=== PATIENT | female | born 1980 | race Caucasian/White ===

== ENCOUNTER 2017-12-14 08:12 | Inpatient (IN) ==
--- NOTE | 2017-12-14 09:04 | OB/GYN History & Physical ---
Date of Encounter: 12/14/17 Time of Encounter: 08:59 Assessment and Plan (1) H/O: Current visit: Yes Status: Acute prob list: h/o x 3 undesired fertility, asthma, smoker cervix checked and fingertip, however patient is in moderate distress so we will be proceeding to , consents signed Anesthesia aware History of Present Illness HPI: Ms. Scott is a 37 year old female @ 39+3 weeks who presents to L&D for her scheduled . She is a repeat x 3 and desires tubal ligation. She does not report LOF, VB, she says that she has been harpreet since 5AM minutes apart (she thinks she is in labor). She has had limited care due to social issues. Past Med Surg Social Fam HX - Past Medical History Medical history: asthma, kidney stones Additional medical history: MRSA IN LEFT EYE 10/01 Psychiatric history: anxiety, depression - Past Surgical History Surgical History: , orthopedic, other Additional surgical history: ORTHO SURGERY LEFT ANKLE - Social History Smoking Status: Never smoker Smokeless Tobacco Status: No Alcohol use: none Drug use: none - Family History Mother Adopted: No Living Status: Still Living Hx Family Cardiac Disorders: Yes (HTN) Hx Family Endocrine Disorder: Yes (DIABETES) Obstetrical History - Pregnancies : 5 Para: 3 Medications and Allergies Albuterol Sulfate [Albuterol Inhaler] 2 puff IH QID #1 inhaler 05/11/17 [Rx] Aspirin [Adult Aspirin Regimen] 1 tab PO DAILY 12/14/17 [History] Buprenorphine HCl [Subutex] 12 mg SL DAILY 12/14/17 [History] Vit Calc,Iron,Folic [ Vitamins] 1 tab PO DAILY 12/14/17 [ History] 3 Allergy/AdvReac Type Severity Reaction Status Date / Time No Known Allergies Allergy Verified 12/14/17 08:50 Review of System OB All systems PM: reviewed and no additional remarkable complaints except as stated Results Result Diagrams: 12/14/17 09:10 All other labs normal.
[2017-12-14] MEDS ORDERED: Ringers Solution, Lactated 1,000 ML ONE ×3 (09:05→10:20)
[2017-12-14] MEDS ORDERED: CeFAZolin Premix DUPLEX 2,000 MG/50 ML BAG IVPB ONE (09:12)
[2017-12-14] MEDS ORDERED: Famotidine 20 MG/2 ML VIAL IVP ONE (09:12)
[2017-12-14] MEDS ORDERED: Ringers Solution, Lactated 1,000 ML IVC SCH ×2 (09:15→12:45)
[2017-12-14] MEDS ORDERED: Oxytocin 20 units/ LR 1000 mL 20 UNIT/1,000 ML BAG IVC SCH ×2 (09:15→12:45)
[2017-12-14] MEDS ORDERED: Bupivacaine/PF 0.75% in Dex 2 ML AMPUL INFILT ONE (09:31)
[2017-12-14] MEDS ORDERED: *HR* Morphine Sulfate/PF 10 MG/10 ML AMPUL ONE (09:34)
[2017-12-14] MEDS ORDERED: *HR* FentaNYL (PF) 100 MCG/2 ML VIAL ONE (09:34)
[2017-12-14] MEDS ORDERED: Lidocaine -MPF 1% 5 ML AMPUL ONE (09:34)
[2017-12-14] MEDS ORDERED: Metoclopramide 10 MG/2 ML VIAL IVP PRN ×2 (09:40→12:42)
[2017-12-14 09:44] LABS: Amphetamine Screen,Urine Negative ng/mL (Cutoff=1000); Barbiturate Screen,Urine Negative ng/mL (Cutoff=200); Benzodiazepines Screen,Urine Negative ng/mL (Cutoff=200); Cannabinoid Screen,Urine Negative ng/mL (Cutoff = 50); Cocaine Screen,Urine Negative ng/mL (Cutoff= 300); Opiate Screen,Urine Negative ng/mL (Cutoff=300); Phencyclidine Screen,Urine Negative ng/mL (Cutoff=25)
--- NOTE | 2017-12-14 09:49 | Anesthesia Evaluation PreOp ---
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 SUPERVISOR History: Denies Any Significant HX Other Medical History: Renal (h/o kidney stones) Anesthesia History: No Prior Anesthetic Complications (denies personal h/o NA or GA complications; denies family h/o GA complications) : Yes Alcohol Use: none Drug use: none Medications and Allergies Albuterol Sulfate [Albuterol Inhaler] 2 puff IH QID #1 inhaler 05/11/17 [Rx] Aspirin [Adult Aspirin Regimen] 1 tab PO DAILY 12/14/17 [History] Buprenorphine HCl [Subutex] 12 mg SL DAILY 12/14/17 [History] Vit Calc,Iron,Folic [ Vitamins] 1 tab PO DAILY 12/14/17 [ History] 3 Allergy/AdvReac Type Severity Reaction Status Date / Time No Known Allergies Allergy Verified 12/14/17 08:50 - Meds/Allergy Pre-op Review Medications Reviewed: Yes Allergies Reviewed: Yes Beta Blockers on Current Med List: No Anesthesia Exam 120/84, HR 89, RR 15 Height: 1.63m Weight: 115 kg NPO (# of Hours): solids > 8hrs Pain Scale: 0 Pain Scale Used: Numeric (1 - 10) - HEENT Pupil (Motor): Pupils equal Mallampati: II Teeth: Normal Oral Opening: Greater than 3 - COILED TUBING SUPERVISOR LOC: Oriented COILED TUBING SUPERVISOR Motor: Normal RUE, Normal LUE, Normal RLE, Normal LLE, Normal Face COILED TUBING SUPERVISOR Sensory: Normal: RUE, LUE, RLE, LLE, Face - Cardiac Rhythm: Regular Murmur: None - Pulmonary Breath Sounds: bilateral Clear Respiratory Effort: Symmetrical Anesthesia Assess/Plan ASA Score: 3 (BMI > 40) Modified [place] Scale for Level of Consciousness: Cooperative, oriented, and tranquil Anesthetic Plan: General (plan B), Regional (plan A) Autologous Blood: No Monitoring Plan: Standard Monitors Recovery Plan: PACU
[2017-12-14 09:52] LABS: Basophils % 0.1 %; Eosinophils # 0.3 K/mcL (0.0-0.6); Eosinophils % 2.7 %; Hematocrit 38.7 % (35.3-44.9); Hemoglobin 13.1 g/dL (11.5-15.4); Immature Granulocytes % 0.5 % (0-4); Lymphocytes # 1.6 K/mcL (0.6-4.6); Lymphocytes % 12.8 %; Mean Corpuscular HGB Conc 33.9 g/dL (31.6-35.5); Mean Corpuscular Hemoglobin 32.8 pg (28.0-33.3); Mean Platelet Volume 11.1 fL (9.4-12.4); Monocytes # 0.8 K/mcL (0.0-1.3); Monocytes % 6.2 %; Neutrophils # 9.8 K/mcL (1.6-8.9); Platelet Count 188 K/mcL (140-400); Red Blood Count 3.99 M/mcL (3.82-4.97); Red Cell Distribution Width 13.3 % (11.5-14.5); Segmented Neutrophils % 77.7 %
--- NOTE | 2017-12-14 10:41 | Anesthesia Procedures ---
Date of Encounter: 12/14/17 Time of Encounter: 10:17 Procedures: Anesthesia - Epidural/Spinal Patient ID/Chart reviewed: Yes Patient examined: Yes OB Eval: Gestational age: 39 weeks 3 days OB Eval: : 5 OB Eval: Hx Para: 3 OB Eval: Contractions: Non-stressed pattern Consent Obtained: Yes Supplemental Oxygen: None/Room Air Site Prep: Aseptic Technique, Sterile prep and drape, Povidone-Iodine 1% Patient position: upright Local Anesthetic: Lidocaine 1% Amount of Local Anesthetic used: 5 Interspace Used: L3-L4 Loss of Resistance (VARGAS): No Blood: No CSF: Yes Paresthesia: No Spinal Needle Gauge: 25 (3.5" pencil point pencan needle) Spinal Dose: see anesthesia record Procedure: required 3 attempts, patient tolerated procedure well, VSS Vitals + FHT's: see anesthesia record
[2017-12-14] MEDS ORDERED: Ondansetron 4 MG/2 ML VIAL IVP PRN ×2 (10:42→12:42)
[2017-12-14] MEDS ORDERED: Naloxone 0.4 MG/ML INJ IVP PRN (10:42)
[2017-12-14] MEDS ORDERED: *HR* Promethazine 25 MG/ML VIAL IVP PRN (10:42)
[2017-12-14] MEDS ORDERED: *HR* Oxytocin 10 UNIT/ML VIAL IM ONE ×2 (10:44→11:54)
[2017-12-14] MEDS ORDERED: *HR* Midazolam HCl 2 MG/2 ML VIAL ONE ×2 (11:10→12:16)
[2017-12-14] MEDS ORDERED: Ketamine *HR* 500 MG/10 ML MDV ONE (11:11)
[2017-12-14] MEDS ORDERED: Acetaminophen IV 1,000 MG/100 ML INFUS..BTL IVPB ONE (11:24)
[2017-12-14] MEDS ORDERED: *HR* Propofol 200 MG/20 ML VIAL IVP ONE ×2 (11:39→11:56)
[2017-12-14] MEDS ORDERED: Ondansetron 4 MG/2 ML VIAL ONE (11:50)
[2017-12-14] MEDS ORDERED: Sennosides 8.6 MG TABLET PO PRN (12:42)
[2017-12-14] MEDS ORDERED: Simethicone 80 MG TAB.CHEW PO PRN (12:42)
--- NOTE | 2017-12-14 12:42 | OB/GYN Procedure Note ---
Section - Date of procedure: 12/14/17 Preop diagnosis: desires repeat , desires sterilization Post-op diagnosis: same Procedure: repeat low transverse, bilateral tubal ligation Surgeon: Mckenzie Brush Blood Loss: 650 Was there an camp assistant present: Yes Dial Refinisher: Marylu Morrow Bosom Presser: Jean Moyer Anesthesia Type: Spinal section complications: none Disposition: L&D Recovery Room Specimens: Placenta, Cord gasses, Right tube segment, Left tube segment - Infant (s) A Delivery Date: 12/14/17 Infant Delivery Time: 11:05 Presentation: vertex Gender: Male Gram Weight: 2.49 kg at 1 minute: 5 at 5 minutes: 8 Shoulder Dystocia: not encountered - Narrative Narrative: The patient was taken to the operating room where spinal anesthesia was administered without difficulty. The patient was prepped and draped in the usual sterile fashion in the dorsal supine position with a leftward tilt. A Pfannenstiel skin incision was made with the scalpel and carried through to the underlying layer of fascia using the Bovie. The fascia was incised in the midline and extended laterally using Robles scissors. After gaining entry into the abdomen, I noticed that the bladder was severely adherent to the lower uterine segment. Jimi clamps were used to elevate the superior aspect of the fascial incision, which was elevated, and the underlying rectus muscles were dissected off bluntly and using Robles scissors. Attention was then turned to the inferior aspect of the fascial incision but the bladder was also severely adherent to inferior aspect of the fascia. I tried to dissect the inferior aspect of the incision but I could not dissect much of the fascia. At that point , I proceeded to perform a Maylard incision to allow adequate entry into the cavity. With the incision, I was able to separate the rectus muscles in the midline. I tried to insert the bladder blade but there was not much room to place the bladder blade because of how adherent the bladder was to the uterus. I made an incision on the uterus and this was extended with the bandage scissors. Clear fluid was noted. The infant was subsequently delivered with the nose and mouth bulb suctioned. The cord was clamped and cut. The was subsequently handed to the awaiting nursery nurse. The placenta was delivered with a three- vessel cord noted. The uterus was exteriorized and cleared of all clots and debris. The uterine incision was repaired in 2 layers using 0 vicryl sutures. Hemostasis was visualized. Attention was turned to the right fallopian tube, which was grasped with Kayla clamp and a 2 cm of segment of tube was ligated x2, transected and specimen was sent to pathology. Attention was then turned to the left fallopian tube, which was grasped with Kayla clamp again and a 2 cm segment of tube was ligated x2 and transected. Hemostasis was visualized bilaterally. The uterus was returned to the abdomen, both fallopian tubes were visualized and were noted to be hemostatic. The uterine incision was reexamined and it was noted to be hemostatic. The rectus muscles were reapproximated in the midline using 3-0 Vicryl. The fascia was closed with 0 PDS suture, the subcutaneous layer was closed with 3-0 vicryl, and the skin was closed with 4-0 vicryl. Sponge, lap, and instrument counts were correct x2. The patient was stable at the completion of the procedure and was subsequently transferred to the recovery room in stable condition.
[2017-12-14] MEDS: *HR* HYDROmorphone (PF) 1 MG/ML SYRINGE IVP PRN ×2 (13:03→13:14)
--- NOTE | 2017-12-14 14:02 | Anesthesia Evaluation Post Op ---
Date of Encounter: 12/14/17 Time of Encounter: 14:01 - Vital Signs Vital Signs: 125/72, HR 71, RR 16, SpO2 100%, T 98.0F - Lungs Lungs: Clear Ascult./Percussion - Airway Airway: Non-obstructed - Cardiovascular Regular Rate - Mental Status Mental Status: Alert & Oriented, Answers Appropriately - Pain Pain Scale: 5 Pain Scale used: Numeric (1 - 10) - Nausea Vomiting Nausea Vomiting: Not Present - Hydration Hydration: NPO, Harding catheter - Discharge PostOp Status: Transfer Patient to floor
[2017-12-14] MEDS: *HR* OxyCODONE/APAP 5/325 TABLET PO PRN (16:52)
[2017-12-14] MEDS: *HR* Buprenorphine HCl 8 MG TAB.SUBL SL SCH (18:53)
[2017-12-14] MEDS: Ibuprofen 600 MG TABLET PO PRN (20:11)
[2017-12-15] MEDS: *HR* OxyCODONE/APAP 5/325 TABLET PO PRN ×4 (00:19→21:43)
[2017-12-15 06:06] LABS: Basophils % 0.2 %; Eosinophils # 0.3 K/mcL (0.0-0.6); Eosinophils % 2.4 %; Immature Granulocytes % 0.4 % (0-4); Lymphocytes # 1.8 K/mcL (0.6-4.6); Lymphocytes % 14.8 %; Mean Corpuscular HGB Conc 32.7 g/dL (31.6-35.5); Mean Corpuscular Hemoglobin 32.6 pg (28.0-33.3); Mean Corpuscular Volume 99.7 fL (83.0-100.0); Mean Platelet Volume 11.2 fL (9.4-12.4); Monocytes # 0.9 K/mcL (0.0-1.3); Monocytes % 7.5 %; Neutrophils # 8.9 K/mcL (1.6-8.9); Platelet Count 170 K/mcL (140-400); Red Blood Count 3.31 M/mcL (3.82-4.97); Red Cell Distribution Width 13.6 % (11.5-14.5); Segmented Neutrophils % 74.7 %
[2017-12-15 06:17] LABS: Hemoglobin 10.8 g/dL (11.5-15.4)
[2017-12-15] MEDS: Prenatal Vit/FA 1 EACH TABLET PO SCH (08:48)
[2017-12-15] MEDS: *HR* Buprenorphine HCl 8 MG TAB.SUBL SL SCH (08:55)
--- NOTE | 2017-12-15 11:07 | Discharge Summary ---
Date of Encounter: 12/15/17 Time of Encounter: 11:07 - Discharge Medications Home Medications: Albuterol Sulfate [Albuterol Inhaler] 2 puff IH QID #1 inhaler 05/11/17 [Rx] Aspirin [Adult Aspirin Regimen] 1 tab PO DAILY 12/14/17 [History] Buprenorphine HCl [Subutex] 12 mg SL DAILY 12/14/17 [History] Vit Calc,Iron,Folic [ Vitamins] 1 tab PO DAILY 12/14/17 [ History] Allergies/Adverse Reactions: 3 Allergy/AdvReac Type Severity Reaction Status Date / Time No Known Allergies Allergy Verified 12/14/17 08:50 Data Procedures and tests throughout hospitalization: Laboratory Tests 12/14/17 12/14/17 12/15/17 09:10 09:10 05:49 WBC 12.6 H 11.9 H RBC 3.99 3.31 L Hgb 13.1 10.8 L D Hct 38.7 33.0 L MCV 97.0 99.7 MCH 32.8 32.6 MCHC 33.9 32.7 RDW 13.3 13.6 Plt Count 188 170 MPV 11.1 11.2 Immature Gran % 0.5 0.4 Seg Neutrophils % 77.7 74.7 Lymphocytes % 12.8 14.8 Monocytes % 6.2 7.5 Eosinophils % 2.7 2.4 Basophils % 0.1 0.2 Neutrophils # 9.8 H 8.9 Lymphocytes # 1.6 1.8 Monocytes # 0.8 0.9 Eosinophils # 0.3 0.3 Basophils # 0.0 0.0 Urine Opiates Screen Negative Ur Barbiturates Screen Negative Ur Phencyclidine Scrn Negative Ur Amphetamines Screen Negative U Benzodiazepines Scrn Negative Urine Cocaine Screen Negative U Marijuana (THC) Screen Negative Ur Drug Screen Interp See Below Labs on day of discharge: Labs from last 24 hours 12/15/17 05:49 WBC 11.9 H RBC 3.31 L Hgb 10.8 L D Hct 33.0 L MCV 99.7 MCH 32.6 MCHC 32.7 RDW 13.6 Plt Count 170 MPV 11.2 Immature Gran % 0.4 Seg Neutrophils % 74.7 Lymphocytes % 14.8 Monocytes % 7.5 Eosinophils % 2.4 Basophils % 0.2 Neutrophils # 8.9 Lymphocytes # 1.8 Monocytes # 0.9 Eosinophils # 0.3 Basophils # 0.0 Date of admission: 12/14/17 08:12 Primary care physician: PCP NONE - Discharge Instructions Follow Up With: NONE,PCP [Primary Care Provider] - Hospital Course Time Attestation: Total time spent providing and/or coordinating discharge services: - VTE Documentation of Mechanical Device: Intermittent pneumatic compression device Exam - Constitutional Vitals: Temp Pulse Resp BP Pulse Ox 98.1 F 80 16 122/59 96 12/15/17 07:30 12/15/17 07:30 12/15/17 07:30 12/15/17 07:30 12/15/17 04:30
--- NOTE | 2017-12-15 11:09 | OB/GYN Progress Note ---
Date of Encounter: 12/15/17 Time of Encounter: 11:08 Objective - Vital Signs Latest vital signs: Vital Signs Temp Pulse Resp BP Pulse Ox 12/15/17 07:30 98.1 F 80 16 122/59 12/15/17 04:30 98.1 F 88 16 146/85 96 12/15/17 00:05 98.3 F 72 16 116/75 97 12/14/17 20:00 98.3 F 85 16 120/59 96 12/14/17 19:47 16 98 12/14/17 18:45 98.6 F 69 16 112/58 12/14/17 17:50 98.4 F 70 16 109/50 12/14/17 16:45 97.9 F 70 16 137/69 98 12/14/17 16:15 98.2 F 69 16 114/61 96 12/14/17 15:49 98.3 F 66 16 112/69 99 Intake and Output 12/14/17 12/15/17 12/15/17 23:59 07:59 15:59 Intake Total 1355 / 1355 Output Total 200 / 200 360 / 360 200 / 200 Balance -200 / -200 995 / 995 -200 / -200 Intake: Oral 480 / 480 Other 875 / 875 Output: Urine 200 / 200 Catheter 200 / 200 360 / 360 Other: Meal Breakfast Percent of Meal Consumed 90% Weight 110.359 kg Patient Weight 12/15/17 23:59 Weight 110.359 kg - I&O's I&O's: Intake & Output 12/12/17 12/13/17 12/14/17 12/15/17 23:59 23:59 23:59 23:59 Intake Total 1355 / 1355 Output Total 1250 / 1250 560 / 560 Balance -1250 / -1250 795 / 795 Weight 111.584 kg 110.359 kg - Labs Labs: Abnormal lab results WBC 11.9 K/mcL (4.3-11.1) H 12/15/17 05:49 RBC 3.31 M/mcL (3.82-4.97) L 12/15/17 05:49 Hgb 10.8 g/dL (11.5-15.4) L D 12/15/17 05:49 Hct 33.0 % (35.3-44.9) L 12/15/17 05:49 Consult Discharge Plan - Plan Referrals: NONE,PCP [Primary Care Provider] -
--- NOTE | 2017-12-15 11:15 | OB/GYN Progress Note ---
Date of Encounter: 12/15/17 Time of Encounter: 11:16 - Assessment and Plan (1) Status post section Current Visit: Yes Status: Acute Patient is postop day 1 of section. This can be considered normal. Patient not complaining of bleeding from anywhere. Patient doing well. Incision site appears well, dressing dry and intact, no evidence of any infection at this time. Continue current management plan post section. Consider discharge tomorrow. Patient given iron supplementation. (2) Breast feeding status of mother Current Visit: Yes Status: Acute States that child has not been breast-feeding well. This is similar to previous pregnancies. has been provided bottle feeds. Subjective - Subjective Principal diagnosis: Status post section Interval history: female. Postop day 1 section. Reports abdominal soreness, and lower extremity swelling is mildly increased from the day before. Patient states she still has lower extremity swelling and hypertension throughout her . Denies any headaches, vision changes, nausea, vomiting at this time. Denies any purulent drainage or redness from the incision site. Reports that the bandage has been dry and intact. Denies any fevers or chills, SOB. Reports that baby has not been breast-feeding well, reports issues with in previous pregnancies. Patient reports: pain well controlled, no nauseated : bottle feeding Objective - Vital Signs Latest vital signs: Vital Signs Temp Pulse Resp BP Pulse Ox 12/15/17 07:30 98.1 F 80 16 122/59 12/15/17 04:30 98.1 F 88 16 146/85 96 12/15/17 00:05 98.3 F 72 16 116/75 97 12/14/17 20:00 98.3 F 85 16 120/59 96 12/14/17 19:47 16 98 12/14/17 18:45 98.6 F 69 16 112/58 12/14/17 17:50 98.4 F 70 16 109/50 12/14/17 16:45 97.9 F 70 16 137/69 98 12/14/17 16:15 98.2 F 69 16 114/61 96 12/14/17 15:49 98.3 F 66 16 112/69 99 Intake and Output 12/14/17 12/15/17 12/15/17 23:59 07:59 15:59 Intake Total 1355 / 1355 Output Total 200 / 200 360 / 360 200 / 200 Balance -200 / -200 995 / 995 -200 / -200 Intake: Oral 480 / 480 Other 875 / 875 Output: Urine 200 / 200 Catheter 200 / 200 360 / 360 Other: Meal Breakfast Percent of Meal Consumed 90% Weight 110.359 kg Patient Weight 12/15/17 23:59 Weight 110.359 kg - Exam Lungs: bilateral: normal Chest: Normal S1, Normal S2 Extremities: Present: edema (2+ pitting edema bilaterally, no palpable cords) Abdomen: Present: soft, tenderness (Mild upon palpation of the incision site) Incision: Present: normal, dry, dressed (dressing is intact and clean and dry) Uterus: Present: firm - Labs Labs: Laboratory Results - last 24 hr 12/15/17 05:49 WBC 11.9 H RBC 3.31 L Hgb 10.8 L D Hct 33.0 L MCV 99.7 MCH 32.6 MCHC 32.7 RDW 13.6 Plt Count 170 MPV 11.2 Immature Gran % 0.4 Seg Neutrophils % 74.7 Lymphocytes % 14.8 Monocytes % 7.5 Eosinophils % 2.4 Basophils % 0.2 Neutrophils # 8.9 Lymphocytes # 1.8 Monocytes # 0.9 Eosinophils # 0.3 Basophils # 0.0
[2017-12-15] MEDS: Ibuprofen 600 MG TABLET PO PRN ×2 (12:24→21:40)
[2017-12-16] MEDS: *HR* OxyCODONE/APAP 5/325 TABLET PO PRN ×3 (02:32→19:52)
[2017-12-16] MEDS: Ibuprofen 600 MG TABLET PO PRN ×2 (03:46→17:54)
--- NOTE | 2017-12-16 09:36 | Discharge Summary ---
Date of Encounter: 12/16/17 Time of Encounter: 09:33 - Discharge Diagnosis (1) Status post section Priority: Primary Status: Acute Comments: S/P delivery day 2. VSS Pain is well controlled Lochia is light and without clots Voiding and passing flatus without difficulty Bottle feeding well. Discharge home today. (2) History of opioid abuse Priority: Secondary Status: Acute Comments: Receives Subutex from a Maura Grimaldo per [facility]. Patient to discuss pain control post op tomorrow with her Subutex provider. - Discharge Medications Prescriptions: Ibuprofen [Motrin] 600 mg PO Q6HR PRN #30 tablet PRN Reason: Cramping Docusate [Colace] 100 mg PO BID PRN #30 capsule PRN Reason: Constipation Ferrous Sulfate 325 mg PO DAILY #90 tablet Home Medications: Albuterol Sulfate [Albuterol Inhaler] 2 puff IH QID #1 inhaler 05/11/17 [Rx] Aspirin [Adult Aspirin Regimen] 1 tab PO DAILY 12/14/17 [History] Buprenorphine HCl [Subutex] 12 mg SL DAILY 12/14/17 [History] Vit Calc,Iron,Folic [ Vitamins] 1 tab PO DAILY 12/14/17 [ History] Albuterol Sulfate [Albuterol Inhaler] 2 puff IH [id number] PRN inhaler 12/16/17 [ Rx] Docusate [Colace] 100 mg PO BID PRN #30 capsule 12/16/17 [Rx] Ferrous Sulfate 325 mg PO DAILY #90 tablet 12/16/17 [Rx] Ibuprofen [Motrin] 600 mg PO Q6HR PRN #30 tablet 12/16/17 [Rx] Simethicone [Gas-X] 80 mg PO TID PRN tab.chew 12/16/17 [Rx] Allergies/Adverse Reactions: 3 Allergy/AdvReac Type Severity Reaction Status Date / Time No Known Allergies Allergy Verified 12/14/17 08:50 Data Procedures and tests throughout hospitalization: Laboratory Tests 12/14/17 12/14/17 12/15/17 09:10 09:10 05:49 WBC 12.6 H 11.9 H RBC 3.99 3.31 L Hgb 13.1 10.8 L D Hct 38.7 33.0 L MCV 97.0 99.7 MCH 32.8 32.6 MCHC 33.9 32.7 RDW 13.3 13.6 Plt Count 188 170 MPV 11.1 11.2 Immature Gran % 0.5 0.4 Seg Neutrophils % 77.7 74.7 Lymphocytes % 12.8 14.8 Monocytes % 6.2 7.5 Eosinophils % 2.7 2.4 Basophils % 0.1 0.2 Neutrophils # 9.8 H 8.9 Lymphocytes # 1.6 1.8 Monocytes # 0.8 0.9 Eosinophils # 0.3 0.3 Basophils # 0.0 0.0 Urine Opiates Screen Negative Ur Barbiturates Screen Negative Ur Phencyclidine Scrn Negative Ur Amphetamines Screen Negative U Benzodiazepines Scrn Negative Urine Cocaine Screen Negative U Marijuana (THC) Screen Negative Ur Drug Screen Interp See Below Date of admission: 12/14/17 08:12 Primary care physician: PCP JOEL Discharging clinician: Annie Ceron Anticipated date of discharge: 12/16/17 - Patient Status Disposition: Home, Self-Care Condition: Good Functional capacity at discharge: independent ambulation Overall status at discharge: patient is progressing back to baseline - Discharge Instructions Follow Up With: NONE,PCP [Primary Care Provider] - Mckenzie Dentno MD [Partnered Physician] - - Diet and Activity Activity: increase activity as tolerated Diet: regular diet Hospital Course Reason for admission: IUP at term Delivery: section Episiotomy: none Laceration: none Other procedures: tubal ligation complications: none Discharge diagnosis: IUP at term delivered [place] baby: male Time Attestation: Total time spent providing and/or coordinating discharge services: Time Spent: Less than 30 minutes - VTE Documentation of Mechanical Device: Intermittent pneumatic compression device Exam - Constitutional Vitals: Temp Pulse Resp BP Pulse Ox 98.1 F 64 16 122/75 97 12/16/17 09:05 12/16/17 09:05 12/16/17 09:05 12/16/17 09:05 12/16/17 09:05 General appearance IM: cooperative, A&O X 3, pleasant - Respiratory Respiratory exam: Present: CTAB - Cardiovascular Cardiovascular exam IM: Present: RRR, +S1, +S2 - GI/Abdominal GI/Abdominal exam IM: normal bowel sounds, soft Incision: normal, dry, intact - Uterine Tone: Firm Uterus Position: 1 Finger Below Umbilicus, Midline - Extremities Exam Extremities exam IM: Present: normal capillary refill, normal inspection, radial pulses palpable and symmetrical - Neurological Exam Neurological exam: alert, oriented X3
[2017-12-16] MEDS: Prenatal Vit/FA 1 EACH TABLET PO SCH (10:08)
[2017-12-16] MEDS: *HR* Buprenorphine HCl 8 MG TAB.SUBL SL SCH (10:09)
[2017-12-17] MEDS: Ibuprofen 600 MG TABLET PO PRN ×2 (00:12→06:00)
[2017-12-17] MEDS: *HR* OxyCODONE/APAP 5/325 TABLET PO PRN ×2 (00:13→03:58)
[2017-12-17 08:31] VITALS: BP 127/70
[2017-12-17] MEDS: Prenatal Vit/FA 1 EACH TABLET PO SCH (09:41)
[2017-12-17] MEDS: *HR* Buprenorphine HCl 8 MG TAB.SUBL SL SCH (09:44)
--- NOTE | 2017-12-17 10:40 | Discharge Summary ---
Date of Encounter: 12/17/17 Time of Encounter: 10:38 - Discharge Diagnosis (1) Status post section Priority: Primary Status: Acute Comments: Doing well s/p delivery Day 3 Pain is well controlled Lochia is light and without clots VSS Passing flatus and voiding without difficulty Discharge home today (2) History of opioid abuse Priority: Secondary Status: Acute - Discharge Medications Prescriptions: Ibuprofen [Motrin] 600 mg PO Q6HR PRN #30 tablet PRN Reason: Cramping Docusate [Colace] 100 mg PO BID PRN #30 capsule PRN Reason: Constipation Ferrous Sulfate 325 mg PO DAILY #90 tablet Home Medications: Albuterol Sulfate [Albuterol Inhaler] 2 puff IH QID #1 inhaler 05/11/17 [Rx] Aspirin [Adult Aspirin Regimen] 1 tab PO DAILY 12/14/17 [History] Buprenorphine HCl [Subutex] 12 mg SL DAILY 12/14/17 [History] Vit Calc,Iron,Folic [ Vitamins] 1 tab PO DAILY 12/14/17 [ History] Albuterol Sulfate [Albuterol Inhaler] 2 puff IH [id number] PRN inhaler 12/16/17 [ Rx] Docusate [Colace] 100 mg PO BID PRN #30 capsule 12/16/17 [Rx] Ferrous Sulfate 325 mg PO DAILY #90 tablet 12/16/17 [Rx] Ibuprofen [Motrin] 600 mg PO Q6HR PRN #30 tablet 12/16/17 [Rx] Simethicone [Gas-X] 80 mg PO TID PRN tab.chew 12/16/17 [Rx] Allergies/Adverse Reactions: 3 Allergy/AdvReac Type Severity Reaction Status Date / Time No Known Allergies Allergy Verified 12/14/17 08:50 Data Procedures and tests throughout hospitalization: Laboratory Tests 12/14/17 12/14/17 12/15/17 09:10 09:10 05:49 WBC 12.6 H 11.9 H RBC 3.99 3.31 L Hgb 13.1 10.8 L D Hct 38.7 33.0 L MCV 97.0 99.7 MCH 32.8 32.6 MCHC 33.9 32.7 RDW 13.3 13.6 Plt Count 188 170 MPV 11.1 11.2 Immature Gran % 0.5 0.4 Seg Neutrophils % 77.7 74.7 Lymphocytes % 12.8 14.8 Monocytes % 6.2 7.5 Eosinophils % 2.7 2.4 Basophils % 0.1 0.2 Neutrophils # 9.8 H 8.9 Lymphocytes # 1.6 1.8 Monocytes # 0.8 0.9 Eosinophils # 0.3 0.3 Basophils # 0.0 0.0 Urine Opiates Screen Negative Ur Barbiturates Screen Negative Ur Phencyclidine Scrn Negative Ur Amphetamines Screen Negative U Benzodiazepines Scrn Negative Urine Cocaine Screen Negative U Marijuana (THC) Screen Negative Ur Drug Screen Interp See Below Date of admission: 12/14/17 08:12 Primary care physician: PCP NONE Discharging clinician: Annie Ceron Anticipated date of discharge: 12/17/17 - Patient Status Disposition: Home, Self-Care Condition: Good Functional capacity at discharge: independent ambulation Overall status at discharge: patient is progressing back to baseline - Discharge Instructions Follow Up With: Mckenzie Denton MD [Partnered Physician] - NONE,PCP [Primary Care Provider] - - Diet and Activity Activity: increase activity as tolerated Diet: regular diet Hospital Course Reason for admission: IUP at term Delivery: section Episiotomy: none Laceration: none Other procedures: none complications: none Discharge diagnosis: IUP at term delivered [place] baby: male Time Attestation: Total time spent providing and/or coordinating discharge services: Time Spent: Less than 30 minutes - VTE Documentation of Mechanical Device: Intermittent pneumatic compression device Exam - Constitutional Vitals: Temp Pulse Resp BP Pulse Ox 97.6 F 63 18 127/70 98 12/17/17 08:30 12/17/17 08:30 12/17/17 08:30 12/17/17 08:30 12/16/17 20:28 General appearance IM: cooperative, A&O X 3, pleasant - Respiratory Respiratory exam: Present: CTAB - Cardiovascular Cardiovascular exam IM: Present: RRR, +S1, +S2 - GI/Abdominal GI/Abdominal exam IM: normal bowel sounds, soft - Uterine Tone: Firm Uterus Position: At Umbilicus, Midline - Extremities Exam Extremities exam IM: Present: normal capillary refill, normal inspection, radial pulses palpable and symmetrical - Neurological Exam Neurological exam: alert, oriented X3
== END 2017-12-17 13:29 | disposition home or self-care (01) | DRG 540 ==
LOC: 1NENULAB 08:12 → 1NENUOBS 12:30
PROVIDERS: ADMIT Student in an Organized Health Care Education/Training Program; ATTEND Student in an Organized Health Care Education/Training Program